=== PATIENT | female | born 1985 | race American Indian/Alaskan Native ===

== ENCOUNTER 2016-05-28 01:56 | Emergency (ER) | payer BC ==
[2016-05-28 03:39] VITALS: BP 139/98
--- NOTE | 2016-05-28 04:27 | Emergency Department Report ---
HPI - General Chief Complaint: Upper Respiratory Infection Time Seen by Provider: 05/28/16 04:20 - HPI HPI: Patient here reported that she has coughing spells 3 hours ago and felt like she could not breathe. Denies any wheezing. Reports nasal congestion and postnasal drip. Denies any fever or chills. Denies any shortness of breath or chest pain. Denies any history of lung disease. Patient has no medical problem. She denies any fever or chills. She said it happened once but she had to come to make sure that everything was okay. Pain is 0 out of 10. No [id number] cough medicine taken. ED Past Medical Hx - Past Medical History Previous Medical History?: No - Surgical History Past Surgical History?: No - Family History Family history: no significant - Social History Smoking Status: Never Smoker Substance Use Type: None - Medications Home Medications: Home Medications Medication Instructions Recorded Confirmed Last Taken Type Cetirizine HCl [ZyrTEC] 10 mg PO QDAY #14 capsule 05/28/16 Unknown Rx Fluticasone [Flonase] 1 spray NS QDAY #1 bottle 05/28/16 Unknown Rx ED Review of Systems ROS: Stated complaint: ANXIETY Other details as noted in HPI Comment: All other systems reviewed and negative Constitutional: denies: chills, fever ENT: congestion. denies: ear pain, throat pain Respiratory: cough. denies: shortness of breath, SOB with exertion, SOB at rest , stridor, wheezing Cardiovascular: denies: chest pain, palpitations, edema, syncope Gastrointestinal: denies: abdominal pain, nausea, vomiting Skin: denies: rash Neurological: denies: headache, weakness, numbness, paresthesias, confusion, abnormal gait, vertigo Physical Exam - Physical Exam Vital Signs: Vital Signs 05/28/16 03:33 Temperature 98.3 F Pulse Rate 97 H Respiratory 18 Rate Blood Pressure 139/98 Blood Pressure 139/98 [Left] O2 Sat by Pulse 99 Oximetry General: This is a 31-year-old female well-nourished well-developed in no acute distress. Physical Exam: Head: Normocephalic atraumatic Mouth: Moist, no pharyngeal exudate or erythema. Uvula is midline and oral airway is patent. No facial swelling. No peritonsillar abscesses. Nose: Congested with erythema to mucosa. Clear Drainage. Maxillary and frontal sinuses nontender to palpate Neck: Supple, no C-spine tenderness, no tracheal deviation. Nontender to palpate. no adenopathy Ears: Bilateral TMs congested without erythema. Bilateral EAC without any redness swelling or drainage. Abdomen: Soft, nontender to palpate in all quadrants, normal bowel sounds in all quadrant and negative CVA tenderness bilaterally. Lungs: Clear to auscultate bilaterally no rhonchi wheezes or rales. Normal work of breathing . No chest wall tenderness. extremity; No CCE. +2 pulses. No neurovascular compromise. Capillary refill less than 3 seconds. Cardiovascular: S1-S2, regular rate rhythm. No murmurs. Skin: clean Dry and intact no rash no lesions Psych: Normal mood and behavior ED Course Vital Signs 05/28/16 03:33 Temperature 98.3 F Pulse Rate 97 H Respiratory 18 Rate Blood Pressure 139/98 Blood Pressure 139/98 [Left] O2 Sat by Pulse 99 Oximetry - Reevaluation(s) Reevaluation #1: 05/28/16 04:42 Patient stable throughout ED stay. ED Medical Decision Making - Medical Decision Making ED course: I explained to patient that she has upper respiratory tract infection and postnasal drainage is probably causing her to have cough. She has no fever, pulse ox is 100% on room air and her heart rate is normal. She is not having any difficulty breathing.And treatment plan discussed patient was understanding. She is discharged home with prescription for Flonase and Zyrtec. Critical care attestation.: If time is entered above; I have spent that time in minutes in the direct care of this critically ill patient, excluding procedure time. ED Disposition Clinical Impression: Viral upper respiratory tract infection with cough Disposition: DISCHARGED TO HOME OR SELFCARE Is pt being admited?: No Does the pt Need Aspirin: No Condition: Stable Instructions: Upper Respiratory Infection (ED) Additional Instructions: Please increase her fluid intake Take medication as prescribed follow up with your primary care physician in 3-5 days and if you do not have one please follow-up with [facility]. Prescriptions: Cetirizine HCl [ZyrTEC] 10 mg PO QDAY #14 capsule Fluticasone [Flonase] 1 spray NS QDAY #1 bottle Referrals: PRIMARY CARE, [Primary Care Provider] - 3-5 Days [facility] [Outside] - 3-5 Days Forms: Work/School Release Form(ED)
== END 2016-05-28 05:03 | disposition home or self-care (01) ==
LOC: ED 01:56
DX: J06.9 Acute upper respiratory infection, unspecified (principal)
CPT/HCPCS: 99283